=== PATIENT | female | born 1990 | race Hispanic/Latino ===

== ENCOUNTER 2018-12-25 05:44 | Emergency (ER) | payer SELFPAY ==
[2018-12-25 06:01] VITALS: BP 115/80
[2018-12-25] MEDS ORDERED: SOLU-Medrol IM ONE (08:30)
--- NOTE | 2018-12-25 08:49 | Emergency Department Report ---
ED Allergic Reaction HPI - General Chief complaint: Burn/Smoke Inhalation Stated complaint: POSSIBLE ALLERGIC REACTION SUNBURN Time Seen by Provider: 12/25/18 08:17 Source: patient Mode of arrival: Ambulatory Limitations: No Limitations - History of Present Illness Initial Comments: 28-year-old female presents to the ED with sunburn to face and bilateral forearms and hands. Patient sustained sunburn 3 days ago while working outside at a [employer] event. Patient states it initially started as a regular sunburn, but now states burning sensation is worse, and has developed some edema to bilateral eyes. Patient states she has tried aloe vera gel without improvement. States took Benadryl last night as well. Patient denies any other symptoms such as itching, rash. Denies any any new foods, or using any new products on her skin. MD Complaint: allergic reaction, facial swelling -: days(s) (3) Exposure: other (sun) Symptoms: facial swelling Severity: moderate Treatment Prior to Arrival: benadryl - Related Data Previous Rx's Medication Instructions Recorded Last Taken Type Lidocaine Viscous 2% 10 ml MM QID PRN #60 udc 01/10/17 Unknown Rx Mag Hydrox/Aluminum Hyd/Simeth 10 ml PO QID PRN #60 oral.susp 01/10/17 Unknown Rx [Maalox Advanced Suspension] diphenhydrAMINE [Benadryl ORAL LIQ] 10 ml PO QID PRN #60 udc 01/10/17 Unknown Rx Fluconazole [Diflucan TAB] 200 mg PO ONCE #1 tablet 08/24/18 Unknown Rx Sulfamethoxazole/Trimethoprim 1 each PO BID 7 Days #14 tablet 08/24/18 Unknown Rx [Bactrim DS TAB] Ibuprofen [Motrin] 600 mg PO Q8H PRN #20 tablet 08/29/18 Unknown Rx Nitrofurantoin [place]/M-Cryst 100 mg PO Q12HR #14 capsule 11/23/18 Unknown Rx [Macrobid CAP] Phenazopyridine [Pyridium] 100 mg PO TID #6 tab 11/23/18 Unknown Rx predniSONE [Prednisone] 50 mg PO DAILY #5 tablet 12/25/18 Unknown Rx Allergies Allergy/AdvReac Type Severity Reaction Status Date / Time acetaminophen [From Percocet] Allergy Anaphylaxis Verified 12/25/18 05:52 cefdinir [From Omnicef] Allergy Anaphylaxis Verified 11/29/18 08:16 oxycodone [From Percocet] Allergy Anaphylaxis Verified 11/29/18 08:16 oxycodone HCl [From Percocet] AdvReac Hives Verified 11/29/18 08:16 ED Review of Systems ROS: Stated complaint: POSSIBLE ALLERGIC REACTION SUNBURN Other details as noted in HPI Comment: All other systems reviewed and negative Constitutional: denies: chills, fever ENT: denies: throat pain Respiratory: denies: shortness of breath, stridor, wheezing Gastrointestinal: denies: nausea, vomiting ED Past Medical Hx - Past Medical History Previous Medical History?: No - Surgical History Past Surgical History?: Yes Hx Appendectomy: Yes Additional Surgical History: x1 - Social History Smoking Status: Current Every Day Smoker Substance Use Type: None - Medications Home Medications: Home Medications Medication Instructions Recorded Confirmed Last Taken Type Lidocaine Viscous 2% 10 ml MM QID PRN #60 udc 01/10/17 Unknown Rx Mag Hydrox/Aluminum Hyd/Simeth 10 ml PO QID PRN #60 oral.susp 01/10/17 Unknown Rx [Maalox Advanced Suspension] diphenhydrAMINE [Benadryl ORAL LIQ] 10 ml PO QID PRN #60 udc 01/10/17 Unknown Rx Fluconazole [Diflucan TAB] 200 mg PO ONCE #1 tablet 08/24/18 Unknown Rx Sulfamethoxazole/Trimethoprim 1 each PO BID 7 Days #14 tablet 08/24/18 Unknown Rx [Bactrim DS TAB] Ibuprofen [Motrin] 600 mg PO Q8H PRN #20 tablet 08/29/18 Unknown Rx Nitrofurantoin [place]/M-Cryst 100 mg PO Q12HR #14 capsule 11/23/18 Unknown Rx [Macrobid CAP] Phenazopyridine [Pyridium] 100 mg PO TID #6 tab 11/23/18 Unknown Rx predniSONE [Prednisone] 50 mg PO DAILY #5 tablet 12/25/18 Unknown Rx ED Physical Exam - General Limitations: No Limitations General appearance: alert, in no apparent distress - Head Head exam: Present: atraumatic, normocephalic - Eye Eye exam: Present: other (moderate edema to bilateral eyes) - ENT ENT exam: Present: mucous membranes moist - Neck Neck exam: Present: normal inspection - Respiratory Respiratory exam: Present: normal lung sounds bilaterally. Absent: respiratory distress, wheezes, stridor - Cardiovascular Cardiovascular Exam: Present: regular rate, normal rhythm - GI/Abdominal GI/Abdominal exam: Present: soft. Absent: distended - Extremities Exam Extremities exam: Present: normal inspection - Neurological Exam Neurological exam: Present: alert, oriented X3 - Psychiatric Psychiatric exam: Present: normal affect, normal mood - Skin Skin exam: Present: warm, dry, intact, erythema (to face and bilateral hands extending detention up bilateral forearms), other (no blistering present). Absent: rash ED Course Vital Signs 12/25/18 05:57 Temperature 97.9 F Pulse Rate 109 H Respiratory 18 Rate Blood Pressure 115/80 O2 Sat by Pulse 100 Oximetry ED Medical Decision Making - Differential Diagnosis sunburn Critical care attestation.: If time is entered above; I have spent that time in minutes in the direct care of this critically ill patient, excluding procedure time. ED Disposition Clinical Impression: Sunburn Disposition: DC-01 TO HOME OR SELFCARE Is pt being admited?: No Condition: Stable Instructions: Sunburn (ED) Prescriptions: predniSONE [Prednisone] 50 mg PO DAILY #5 tablet Referrals: REJI TONY MD [Primary Care Provider] - 3-5 Days Time of Disposition: 08:43
== END 2018-12-25 08:55 | disposition home or self-care (01) ==
LOC: ED 05:44
DX: L55.9 Sunburn, unspecified (principal); R22.0 Localized swelling, mass and lump, head; F17.200 Nicotine dependence, unspecified, uncomplicated; Z90.89 Acquired absence of other organs; Z88.6 Allergy status to analgesic agent; Z88.1 Allergy status to other antibiotic agents; Z88.5 Allergy status to narcotic agent
CPT/HCPCS: 96372; 99282; J2930

== ENCOUNTER 2019-01-12 02:14 | Emergency (ER) | payer OTHER ==
[2019-01-12 02:31] VITALS: BP 106/54
[2019-01-12] MEDS ORDERED: NORCO 5/325 ONE (03:56)
[2019-01-12] MEDS ORDERED: IBUPROFEN PO ONE ×2 (04:01→04:05)
[2019-01-12] MEDS ORDERED: NORCO 5/325 PO ONE (04:02)
--- NOTE | 2019-01-12 04:27 | Emergency Department Report ---
Upper Extremity - HPI Chief Complaint: Extremity Injury, Upper Stated Complaint: LEFT HAND INJURY Time Seen by Provider: 01/12/19 04:22 Upper Extremity: Left Ring Finger, Left Little Finger Occurred When: 1 Day Mechanism: Hyperflexion Severity: severe Symptoms: Yes Pain with Movement, Yes Limited Range of Movement, Yes Weakness, Yes Swelling, Yes Bruising/Ecchymosis, No Deformity, No Laceration or Abrasion Other History: 28-year-old female brought to the emergency room for left hand pain and swelling to the pinky finger on the left hand. Patient reports that it was bent all the way back and it has been hurting since yesterday morning. Patient reports that she took Tylenol but did not help much for the pain. Patient reports no past medical history, takes no medications on a daily basis. And has an allergy to codeine and oxycodone. ED Review of Systems ROS: Stated complaint: LEFT HAND INJURY Other details as noted in HPI Comment: All other systems reviewed and negative Musculoskeletal: joint swelling (left hand), arthralgia (left hand) ED Past Medical Hx - Past Medical History Previous Medical History?: No - Surgical History Hx Appendectomy: Yes Additional Surgical History: x1 - Social History Smoking Status: Current Every Day Smoker Substance Use Type: None - Medications Home Medications: Home Medications Medication Instructions Recorded Confirmed Last Taken Type Lidocaine Viscous 2% 10 ml MM QID PRN #60 udc 01/10/17 Unknown Rx Mag Hydrox/Aluminum Hyd/Simeth 10 ml PO QID PRN #60 oral.susp 01/10/17 Unknown Rx [Maalox Advanced Suspension] diphenhydrAMINE [Benadryl ORAL LIQ] 10 ml PO QID PRN #60 udc 01/10/17 Unknown Rx Fluconazole [Diflucan TAB] 200 mg PO ONCE #1 tablet 08/24/18 Unknown Rx Sulfamethoxazole/Trimethoprim 1 each PO BID 7 Days #14 tablet 08/24/18 Unknown Rx [Bactrim DS TAB] Nitrofurantoin [place]/M-Cryst 100 mg PO Q12HR #14 capsule 11/23/18 Unknown Rx [Macrobid CAP] Phenazopyridine [Pyridium] 100 mg PO TID #6 tab 11/23/18 Unknown Rx predniSONE [Prednisone] 50 mg PO DAILY #5 tablet 12/25/18 Unknown Rx Ibuprofen [Motrin 600 MG tab] 600 mg PO Q8H PRN #20 tablet 01/12/19 Unknown Rx Upper Extremity Exam - Exam General: Vital signs noted. No distress. Alert and acting appropriately. Elbow: No Elbow Tenderness, No Normal Range of Motion in Elbow, No Elbow Deformity Forearm: No Forearm Tenderness, No Forearm Deformity, No Pain with Pronation, No Pain with Supination Wrist: Yes Normal ROM in Wrist, No Wrist Tenderness, No Wrist Deformity, No Snuffbox Tenderness, No Pain with Axial Thumb Compression Hand: Yes Hand Tenderness, Yes Hand Deformity, Yes Digit Tenderness, No Normal ROM in Digit(s), No Digit(s) Deformity, No Tendon Dysfunction CMS Exam: Yes Normal Distal Pulses, Yes Normal Capillary Refill, Yes Normal Distal Sensation, No Broken Skin ED Course Vital Signs 01/12/19 01/12/19 01/12/19 02:20 02:28 04:05 Temperature 98.0 F 98 F Pulse Rate 78 78 Respiratory 18 18 18 Rate Blood Pressure 106/44 106/54 O2 Sat by Pulse 99 99 Oximetry Critical care attestation.: If time is entered above; I have spent that time in minutes in the direct care of this critically ill patient, excluding procedure time. ED Disposition Clinical Impression: Fracture, metacarpal shaft Qualifiers: Encounter type: initial encounter Metacarpal bone: fifth Fracture type: closed Fracture alignment: nondisplaced Laterality: left Qualified Code(s): S62.357A - Nondisplaced fracture of shaft of fifth metacarpal bone, left hand, initial encounter for closed fracture Disposition: DC-01 TO HOME OR SELFCARE Is pt being admited?: No Does the pt Need Aspirin: No Condition: Stable Instructions: Hand Fracture (ED) Additional Instructions: Please take pain medication as prescribed. It is very important for you to follow up with risk specialist I have listed one below for your convenience. Prescriptions: Ibuprofen [Motrin 600 MG tab] 600 mg PO Q8H PRN #20 tablet PRN Reason: Pain Referrals: KINZA BOWDEN MD [Staff Physician] - 3-5 Days Forms: Work/School Release Form(ED), Accompanied Note
--- NOTE | 2019-01-12 05:13 | XRay Report ---
PROCEDURE: XR HAND 3+V LT TECHNIQUE: 3 views left hand HISTORY: Swelling and pain left hand COMPARISONS: None FINDINGS: Oblique mildly angulated fracture extends through the diaphysis of the left fifth metacarpal. Joint s paces are unremarkable. Alignment is otherwise anatomic. No other fractures are seen. IMPRESSION: Oblique mildly angulated left fifth metacarpal fracture. This document is electronically signed by Tony Wagoner MD., January 12 2019 05:10:53 AM ET
== END 2019-01-12 05:10 | disposition home or self-care (01) ==
LOC: ED 02:14
DX: S62.327A Displaced fracture of shaft of fifth metacarpal bone, left hand, initial encounter for closed fracture (principal); F17.200 Nicotine dependence, unspecified, uncomplicated; Z90.89 Acquired absence of other organs; Z88.6 Allergy status to analgesic agent; Z88.1 Allergy status to other antibiotic agents; Z88.5 Allergy status to narcotic agent; X50.9XXA Other and unspecified overexertion or strenuous movements or postures, initial encounter; Y93.89 Activity, other specified; Y92.89 Other specified places as the place of occurrence of the external cause; Y99.8 Other external cause status

== ENCOUNTER 2019-01-31 08:59 | Emergency (ER) | payer OTHER ==
[2019-01-31 09:09] VITALS: BP 115/72
--- NOTE | 2019-01-31 10:25 | Emergency Department Report ---
[facility] Chief Complaint: Eye Problems Stated Complaint: POSS PINK EYE Duration: 2 Days Side: Bilateral Severity: moderate Symptoms: Yes Eye Itching, Yes Eye Redness, Yes Mucous Drainage, No Eye Pain, No Purulent Drainage, No Blurred Vision, No Preceding URI, No H/O Allergic Rhinitis, No Contact Lens Use, No Trauma, No Fever, No Headache Other History: This is a 28-year-old female presents with bilateral eye redness and itching for 2 days. Patient states it initially started on the right yesterday with redness. Patient states she woke up this morning and there was swelling, redness, and itching to right side and redness on left. She has not tried anything [id number]. No past medical history. Denies visual changes. She denies contact lens or glasses. She also complains of some drainage to right eye. ED Review of Systems ROS: Stated complaint: POSS PINK EYE Other details as noted in HPI Constitutional: denies: chills, fever Eyes: eye discharge (bilateral redness and itching). denies: vision change ENT: denies: ear pain, throat pain Respiratory: denies: cough, shortness of breath, wheezing Cardiovascular: denies: chest pain, palpitations Gastrointestinal: denies: abdominal pain, nausea, diarrhea Skin: denies: rash, lesions Neurological: denies: headache, weakness, paresthesias Psychiatric: denies: anxiety, depression ED Past Medical Hx - Past Medical History Previous Medical History?: No - Surgical History Hx Appendectomy: Yes Additional Surgical History: x1 - Social History Smoking Status: Current Every Day Smoker Substance Use Type: None - Medications Home Medications: Home Medications Medication Instructions Recorded Confirmed Last Taken Type Lidocaine Viscous 2% 10 ml MM QID PRN #60 [facility] 01/10/17 Unknown Rx Mag Hydrox/Aluminum Hyd/Simeth 10 ml PO QID PRN #60 oral.susp 01/10/17 Unknown Rx [Maalox Advanced Suspension] diphenhydrAMINE [Benadryl ORAL LIQ] 10 ml PO QID PRN #60 udc 01/10/17 Unknown Rx Fluconazole [Diflucan TAB] 200 mg PO ONCE #1 tablet 08/24/18 Unknown Rx Sulfamethoxazole/Trimethoprim 1 each PO BID 7 Days #14 tablet 08/24/18 Unknown Rx [Bactrim DS TAB] Nitrofurantoin [place]/M-Cryst 100 mg PO Q12HR #14 capsule 11/23/18 Unknown Rx [Macrobid CAP] Phenazopyridine [Pyridium] 100 mg PO TID #6 tab 11/23/18 Unknown Rx predniSONE [Prednisone] 50 mg PO DAILY #5 tablet 12/25/18 Unknown Rx Ibuprofen [Motrin 600 MG tab] 600 mg PO Q8H PRN #20 tablet 01/12/19 Unknown Rx Erythromycin [Erythromycin Ophth 10 applic OP QID 7 Days #1 tube 01/31/19 Unknown Rx Oint] [facility] Exam - Exam General: Vital signs noted. No distress. Alert and acting appropriately. Eye Exam: Right Chemosis, Right Mucous Discharge, Both Injection, Both EOMI, Neither Abnormal Pupil, Neither Eye Foreign Body, Neither Lid Foreign Body, Neither Purulent Discharge, Neither Fluorescein Uptake, Neither Fluorescein Uptake (slit lamp), Neither Cell/Flare (slit lamp), Neither Corneal Edema, Neither Photophobia HEENT: No Nasal Congestion, No Pharyngeal Erythema Remainder of HEENT: Normal Lungs: Yes Clear Lung Sounds, Yes Good Air Exchange, No Wheezes, No Stridor, No Cough, No Nasal Flaring, No Retractions, No Use of Accessory Muscles ED Course Vital Signs 01/31/19 09:00 Temperature 98.1 F Pulse Rate 84 Respiratory 16 Rate Blood Pressure 115/72 O2 Sat by Pulse 100 Oximetry ED Medical Decision Making - Medical Decision Making This is a 28-year-old female that presents with bilateral pink eyes with mucous discharge for 2 days. Patient is stable and was examined by me. Vitals normal. Physical assessment susceptible of conjunctivitis bilateral. Start erythromycin. Discussed plan with patient and she agreed with plan. Discharged home in stable condition. Follow up with PCP in 24-72 hours. Critical care attestation.: If time is entered above; I have spent that time in minutes in the direct care of this critically ill patient, excluding procedure time. ED Disposition Clinical Impression: Conjunctivitis Qualifiers: Conjunctivitis type: acute Acute conjunctivitis type: bacterial Laterality: bilateral Qualified Code(s): H10.33 - Unspecified acute conjunctivitis, bilateral Disposition: - TO HOME OR SELFCARE Is pt being admited?: No Does the pt Need Aspirin: No Condition: Stable Instructions: Conjunctivitis (ED) Additional Instructions: [place]e is very contagious so please wash hands frequently. Don't share any towels or bedding to prevent spread of infection. Follow up with primary care provider in 24-72 hours. Use cool compress to each eye to decrease swelling. Avoid rubbing or touching eyes, because rubbing eyes can cause worsening symptoms. Take medication as prescribed. Return to ER if swelling don't improve or difficulty breathing after 2 days of medication. Prescriptions: Erythromycin [Erythromycin Ophth Oint] 10 applic OP QID 7 Days #1 tube Referrals: [facility] [place] [facility] [place] - 3-5 Days [facility] [Outside] - 3-5 Days [facility] [Outside] - 3-5 Days Forms: Work/School Release Form(ED) Time of Disposition: 10:30
== END 2019-01-31 10:41 | disposition home or self-care (01) ==
LOC: ED 08:59
DX: H10.33 Unspecified acute conjunctivitis, bilateral (principal); F17.200 Nicotine dependence, unspecified, uncomplicated
CPT/HCPCS: 99282

== ENCOUNTER 2019-02-19 13:14 | Emergency (ER) | payer SELFPAY ==
--- NOTE | 2019-02-19 14:12 | Emergency Department Report ---
Chief Complaint: Urogenital-Female Stated Complaint: POS UTI/KIDNEY INFECTION Time Seen by Provider: 02/19/19 14:11 - HPI History of Present Illness: DYSURIA RX NONE PMH NONE LMP DUE 26 NOT CONCERN STI MSE screening note: Focused history and physical exam performed. Due to findings the following was ordered: ED Disposition for MSE Condition: Stable
[2019-02-19 15:36] LABS: Bilirubin,Urine NEG (Negative); Blood,Urine NEG (Negative); Color,Urine Yellow (Yellow); Protein,Urine <15 mg/dL mg/dL (Negative); Urobilinogen,Urine < 2.0 mg/dL (<2.0); WBC,Urine < 1.0 /HPF (0.0-6.0)
[2019-02-19 15:37] LABS: HCG Qualitative,Urine Negative (Negative); Mucus,Urine FEW /HPF
--- NOTE | 2019-02-19 17:26 | Emergency Department Report ---
ED Female HPI - General Chief complaint: Urogenital-Female Stated complaint: POS UTI/KIDNEY INFECTION Time Seen by Provider: 02/19/19 14:11 Source: patient Mode of arrival: Ambulatory Limitations: No Limitations - History of Present Illness Initial comments: This is a 28-year-old female presents with dysuria, pelvic pain, and low back pain for 3 days. Patient also complains of a headache for the past 2 days. Last menstrual period was 01/22/2019, A1 miscarriage. She also reports vaginal discharge. Patient states she has used Monistat one week ago with no improvement of symptoms. States she is sexually active with one partner. MD Complaint: vaginal discharge Onset/Timin -: days(s) Location: suprapubic Radiation: other (lower back) Severity: moderate Severity scale (0 -10): 4 Quality: cramping, burning Consistency: intermittent Improves with: none Worsens with: urination Are you Now?: No Last Menstrual Period: 01/22/19 EDC: 10/29/19 Associated Symptoms: vaginal discharge, abdominal pain, dysuria. denies: vaginal bleeding, nausea/vomiting, fever/chills, headaches, loss of appetite, hematuria, rash, seizure, shortness of breath, syncope, weakness - Related Data Sexually active: Yes : 2 Para: 1 A: 1 (miscarriage) Previous Rx's Medication Instructions Recorded Last Taken Type Lidocaine Viscous 2% 10 ml MM QID PRN #60 udc 01/10/17 Unknown Rx Mag Hydrox/Aluminum Hyd/Simeth 10 ml PO QID PRN #60 oral.susp 01/10/17 Unknown Rx [Maalox Advanced Suspension] diphenhydrAMINE [Benadryl ORAL LIQ] 10 ml PO QID PRN #60 udc 01/10/17 Unknown Rx Fluconazole [Diflucan TAB] 200 mg PO ONCE #1 tablet 08/24/18 Unknown Rx Sulfamethoxazole/Trimethoprim 1 each PO BID 7 Days #14 tablet 08/24/18 Unknown Rx [Bactrim DS TAB] Nitrofurantoin [place]/M-Cryst 100 mg PO Q12HR #14 capsule 11/23/18 Unknown Rx [Macrobid CAP] Phenazopyridine [Pyridium] 100 mg PO TID #6 tab 11/23/18 Unknown Rx predniSONE [Prednisone] 50 mg PO DAILY #5 tablet 12/25/18 Unknown Rx Ibuprofen [Motrin 600 MG tab] 600 mg PO Q8H PRN #20 tablet 01/12/19 Unknown Rx Erythromycin [Erythromycin Ophth 10 applic OP QID 7 Days #1 tube 01/31/19 Unknown Rx Oint] metroNIDAZOLE [Metronidazole] 500 mg PO BID #14 tablet 02/19/19 Unknown Rx Allergies Allergy/AdvReac Type Severity Reaction Status Date / Time cefdinir [From Omnicef] Allergy Anaphylaxis Verified 02/19/19 14:14 oxycodone [From Percocet] Allergy Anaphylaxis Verified 02/19/19 14:14 oxycodone HCl [From Percocet] AdvReac Hives Verified 02/19/19 14:14 ED Review of Systems ROS: Stated complaint: POS UTI/KIDNEY INFECTION Other details as noted in HPI Constitutional: denies: chills, fever Respiratory: denies: cough, shortness of breath, wheezing Cardiovascular: denies: chest pain, palpitations Gastrointestinal: abdominal pain. denies: nausea, diarrhea Genitourinary: discharge. denies: urgency, dysuria Musculoskeletal: back pain. denies: joint swelling, arthralgia Skin: denies: rash, lesions Neurological: denies: headache, weakness, paresthesias Psychiatric: denies: anxiety, depression ED Past Medical Hx - Past Medical History Previous Medical History?: No - Surgical History Past Surgical History?: Yes Hx Appendectomy: Yes Additional Surgical History: x1 - Social History Smoking Status: Current Every Day Smoker Substance Use Type: None - Medications Home Medications: Home Medications Medication Instructions Recorded Confirmed Last Taken Type Lidocaine Viscous 2% 10 ml MM QID PRN #60 udc 01/10/17 Unknown Rx Mag Hydrox/Aluminum Hyd/Simeth 10 ml PO QID PRN #60 oral.susp 01/10/17 Unknown Rx [Maalox Advanced Suspension] diphenhydrAMINE [Benadryl ORAL LIQ] 10 ml PO QID PRN #60 udc 01/10/17 Unknown Rx Fluconazole [Diflucan TAB] 200 mg PO ONCE #1 tablet 08/24/18 Unknown Rx Sulfamethoxazole/Trimethoprim 1 each PO BID 7 Days #14 tablet 08/24/18 Unknown Rx [Bactrim DS TAB] Nitrofurantoin [place]/M-Cryst 100 mg PO Q12HR #14 capsule 11/23/18 Unknown Rx [Macrobid CAP] Phenazopyridine [Pyridium] 100 mg PO TID #6 tab 11/23/18 Unknown Rx predniSONE [Prednisone] 50 mg PO DAILY #5 tablet 12/25/18 Unknown Rx Ibuprofen [Motrin 600 MG tab] 600 mg PO Q8H PRN #20 tablet 01/12/19 Unknown Rx Erythromycin [Erythromycin Ophth 10 applic OP QID 7 Days #1 tube 01/31/19 Unknown Rx Oint] metroNIDAZOLE [Metronidazole] 500 mg PO BID #14 tablet 02/19/19 Unknown Rx ED Physical Exam - General Limitations: No Limitations General appearance: alert, in no apparent distress - Respiratory Respiratory exam: Present: normal lung sounds bilaterally. Absent: respiratory distress - Cardiovascular Cardiovascular Exam: Present: regular rate, normal rhythm. Absent: systolic murmur, diastolic murmur, rubs, gallop - GI/Abdominal GI/Abdominal exam: Present: soft, normal bowel sounds. Absent: distended, tenderness, guarding, rebound, rigid, organomegaly, mass, bruit, pulsatile mass - Back Exam Back exam: Absent: CVA tenderness (R), CVA tenderness (L) - Neurological Exam Neurological exam: Present: alert, oriented X3 - Psychiatric Psychiatric exam: Present: normal affect, normal mood - Skin Skin exam: Present: warm, dry, intact, normal color. Absent: rash ED Course Vital Signs 02/19/19 02/19/19 14:12 18:28 Temperature 98.5 F 98.5 F Pulse Rate 77 63 Respiratory 16 14 Rate Blood Pressure 100/70 107/73 O2 Sat by Pulse 98 100 Oximetry ED Medical Decision Making - Medical Decision Making This is a 28-year-old female who presents with vaginal discharge for one week. Patient was examined by me. Vitals are stable and in no acute distress. Pain is present. Pelvic exam. Wet prep positive for clue cells, negative Trichomonas and yeast. Start metronidazole 500 mg by mouth twice a day 7 days, 0 refills. Discharged home in stable condition. Discussed prevention options. F/U with PCP or Health Department. Critical care attestation.: If time is entered above; I have spent that time in minutes in the direct care of this critically ill patient, excluding procedure time. ED Disposition Clinical Impression: Vaginal discharge Disposition: DC- TO HOME OR SELFCARE Is pt being admited?: No Does the pt Need Aspirin: No Condition: Stable Instructions: Bacterial Vaginosis (ED) Additional Instructions: Complete full course of antibiotics as prescribed. Avoid drinking alcohol while taking antibiotics appropriate 24 hours of completion. Follow-up with your primary care provider or cashier assistant. Prescriptions: metroNIDAZOLE [Metronidazole] 500 mg PO BID #14 tablet Referrals: REJI TONY MD [Primary Care Provider] - 3-5 Days [facility] [Provider Group] - 3-5 Days [facility] [Provider Group] - 3-5 Days Forms: Work/School Release Form(ED) Time of Disposition: 19:08
[2019-02-19 18:46] VITALS: BP 107/73
== END 2019-02-19 19:25 | disposition home or self-care (01) ==
LOC: ED 13:14
DX: N89.8 Other specified noninflammatory disorders of vagina (principal); F17.200 Nicotine dependence, unspecified, uncomplicated; Z88.5 Allergy status to narcotic agent; Z90.49 Acquired absence of other specified parts of digestive tract
CPT/HCPCS: 81001; 81025; 87210; 99284

== ENCOUNTER 2019-03-26 00:48 | Emergency (ER) | payer OTHER ==
[2019-03-26 01:42] LABS: HCG Qualitative,Urine Negative (Negative)
[2019-03-26 01:45] LABS: Bacteria,Urine 2+ /HPF (Negative); Bilirubin,Urine NEG (Negative); Blood,Urine NEG (Negative); Color,Urine Amber (Yellow); Mucus,Urine 3+ /HPF
--- NOTE | 2019-03-26 02:14 | Emergency Department Report ---
ED Female HPI - General Chief complaint: Urogenital-Female Stated complaint: POSS UTI Time Seen by Provider: 03/26/19 01:47 Source: patient Mode of arrival: Ambulatory Limitations: No Limitations - History of Present Illness Initial comments: Pt is a 28 yo female who presents to the ED with c/o dysuria that began yesterday. she has associated suprapubic pressure. she denies any fever, N/V/D, frequency, or vaginal discharge. pt states her LNMP was February 25. - Related Data Previous Rx's Medication Instructions Recorded Last Taken Type Lidocaine Viscous 2% 10 ml MM QID PRN #60 udc 01/10/17 Unknown Rx Mag Hydrox/Aluminum Hyd/Simeth 10 ml PO QID PRN #60 oral.susp 01/10/17 Unknown Rx [Maalox Advanced Suspension] diphenhydrAMINE [Benadryl ORAL LIQ] 10 ml PO QID PRN #60 udc 01/10/17 Unknown Rx Fluconazole [Diflucan TAB] 200 mg PO ONCE #1 tablet 08/24/18 Unknown Rx Sulfamethoxazole/Trimethoprim 1 each PO BID 7 Days #14 tablet 08/24/18 Unknown Rx [Bactrim DS TAB] Nitrofurantoin [place]/M-Cryst 100 mg PO Q12HR #14 capsule 11/23/18 Unknown Rx [Macrobid CAP] Phenazopyridine [Pyridium] 100 mg PO TID #6 tab 11/23/18 Unknown Rx predniSONE [Prednisone] 50 mg PO DAILY #5 tablet 12/25/18 Unknown Rx Ibuprofen [Motrin 600 MG tab] 600 mg PO Q8H PRN #20 tablet 01/12/19 Unknown Rx Erythromycin [Erythromycin Ophth 10 applic OP QID 7 Days #1 tube 01/31/19 Unknown Rx Oint] metroNIDAZOLE [Metronidazole] 500 mg PO BID #14 tablet 02/19/19 Unknown Rx Ciprofloxacin HCl [Ciprofloxacin 250 mg PO BID 3 Days #6 tablet 03/26/19 Unknown Rx TAB] Fluconazole [Diflucan TAB] 150 mg PO ONCE #1 tablet 03/28/19 Unknown Rx Allergies Allergy/AdvReac Type Severity Reaction Status Date / Time cefdinir [From Omnicef] Allergy Anaphylaxis Verified 02/19/19 14:14 oxycodone [From Percocet] Allergy Anaphylaxis Verified 02/19/19 14:14 oxycodone HCl [From Percocet] AdvReac Hives Verified 02/19/19 14:14 ED Review of Systems ROS: Stated complaint: POSS UTI Other details as noted in HPI Comment: All other systems reviewed and negative ED Past Medical Hx - Past Medical History Previous Medical History?: No - Surgical History Past Surgical History?: Yes Hx Appendectomy: Yes Additional Surgical History: x1 - Social History Smoking Status: Current Every Day Smoker Substance Use Type: None - Medications Home Medications: Home Medications Medication Instructions Recorded Confirmed Last Taken Type Lidocaine Viscous 2% 10 ml MM QID PRN #60 udc 01/10/17 Unknown Rx Mag Hydrox/Aluminum Hyd/Simeth 10 ml PO QID PRN #60 oral.susp 01/10/17 Unknown Rx [Maalox Advanced Suspension] diphenhydrAMINE [Benadryl ORAL LIQ] 10 ml PO QID PRN #60 udc 01/10/17 Unknown Rx Fluconazole [Diflucan TAB] 200 mg PO ONCE #1 tablet 08/24/18 Unknown Rx Sulfamethoxazole/Trimethoprim 1 each PO BID 7 Days #14 tablet 08/24/18 Unknown Rx [Bactrim DS TAB] Nitrofurantoin [place]/M-Cryst 100 mg PO Q12HR #14 capsule 11/23/18 Unknown Rx [Macrobid CAP] Phenazopyridine [Pyridium] 100 mg PO TID #6 tab 11/23/18 Unknown Rx predniSONE [Prednisone] 50 mg PO DAILY #5 tablet 12/25/18 Unknown Rx Ibuprofen [Motrin 600 MG tab] 600 mg PO Q8H PRN #20 tablet 01/12/19 Unknown Rx Erythromycin [Erythromycin Ophth 10 applic OP QID 7 Days #1 tube 01/31/19 Unknown Rx Oint] metroNIDAZOLE [Metronidazole] 500 mg PO BID #14 tablet 02/19/19 Unknown Rx Ciprofloxacin HCl [Ciprofloxacin 250 mg PO BID 3 Days #6 tablet 03/26/19 Unknown Rx TAB] Fluconazole [Diflucan TAB] 150 mg PO ONCE #1 tablet 03/28/19 Unknown Rx ED Physical Exam - General Limitations: No Limitations General appearance: alert, in no apparent distress - Head Head exam: Present: atraumatic, normocephalic - ENT ENT exam: Present: mucous membranes moist - Respiratory Respiratory exam: Present: normal lung sounds bilaterally. Absent: respiratory distress, wheezes, rales, rhonchi, stridor, chest wall tenderness, accessory muscle use, decreased breath sounds, prolonged expiratory - Cardiovascular Cardiovascular Exam: Present: regular rate, normal rhythm, normal heart sounds. Absent: systolic murmur, diastolic murmur, rubs, gallop - GI/Abdominal GI/Abdominal exam: Present: soft, normal bowel sounds. Absent: distended, tenderness, guarding, rebound, rigid - Back Exam Back exam: Absent: CVA tenderness (R), CVA tenderness (L) - Neurological Exam Neurological exam: Present: alert, oriented X3 - Psychiatric Psychiatric exam: Present: normal affect, normal mood - Skin Skin exam: Present: warm, dry, intact ED Course Vital Signs 03/26/19 03/26/19 00:49 02:26 Temperature 98.4 F Pulse Rate 105 H 77 Respiratory 18 16 Rate Blood Pressure 116/80 Blood Pressure 113/78 [Left] O2 Sat by Pulse 98 99 Oximetry ED Medical Decision Making - Lab Data Lab Results 03/26/19 Range/Units 00:59 Urine Color [place] (Yellow) Urine Turbidity Cloudy (Clear) Urine pH 5.0 (5.0-7.0) Ur Specific [place] 1.031 H (1.003-1.030) Urine Protein 30 mg/dl (Negative) mg/dL Urine Glucose (UA) Neg (Negative) mg/dL Urine Ketones Tr (Negative) mg/dL Urine Blood Neg (Negative) Urine Nitrite Neg (Negative) Ur Reducing Substances Not Reportable Urine Bilirubin Neg (Negative) Urine Ictotest Not Reportable Urine Urobilinogen 4.0 (<2.0) mg/dL Ur Leukocyte Esterase Mod (Negative) Urine WBC (Auto) 28.0 H (0.0-6.0) /HPF Urine RBC (Auto) 10.0 (0.0-6.0) /HPF U Epithel Cells (Auto) 11.0 (0-13.0) /HPF Urine Bacteria (Auto) 2+ (Negative) /HPF Urine Mucus 3+ /HPF Urine HCG, Qual Negative (Negative) Vital Signs 03/26/19 03/26/19 00:49 02:26 Temperature 98.4 F Pulse Rate 105 H 77 Respiratory 18 16 Rate Blood Pressure 116/80 Blood Pressure 113/78 [Left] O2 Sat by Pulse 98 99 Oximetry - Medical Decision Making Pt is a 28 yo female who presents to the ED with c/o dysuria that began yesterday. she has associated suprapubic pressure. she denies any fever, N/V/D, frequency, or vaginal discharge. pt states her LNMP was February 25. UA shows evidence of UTI. on repeat vitals, vitals are normal. no abd tenderness. pt given prescription for cipro. advised to take all medication as prescribed. drink plenty of water. follow up with athletic shoe designer and PCP in the next 2-3 days for evaluation. return to the ED for any new or worsening symptoms. Critical care attestation.: If time is entered above; I have spent that time in minutes in the direct care of this critically ill patient, excluding procedure time. ED Disposition Clinical Impression: UTI (urinary tract infection) Qualifiers: Urinary tract infection type: acute cystitis Hematuria presence: without hematuria Qualified Code(s): N30.00 - Acute cystitis without hematuria Disposition: TO HOME OR SELFCARE Is pt being admited?: No Does the pt Need Aspirin: No Condition: Stable Instructions: Urinary Tract Infection in Women (ED) Additional Instructions: Please follow up with a primary care doctor in the next 2-3 days. Please follow up with an PRODUCTION CONTROL ANALYST in the next 2-3 days due to frequent UTIs. Return to the emergency room for any new or worsening symptoms. drink plenty of water. Prescriptions: Ciprofloxacin HCl [Ciprofloxacin TAB] 250 mg PO BID 3 Days #6 tablet Referrals: [facility] [Provider Group] - 2-3 Days [facility] [Provider Group] - 2-3 Days Time of Disposition: 02:16 Print Language: SPANISH
[2019-03-26 02:27] VITALS: BP 113/78
== END 2019-03-26 02:26 | disposition home or self-care (01) ==
LOC: ED 00:48
DX: N39.0 Urinary tract infection, site not specified (principal); F17.200 Nicotine dependence, unspecified, uncomplicated; Z90.89 Acquired absence of other organs; Z88.1 Allergy status to other antibiotic agents; Z88.5 Allergy status to narcotic agent
CPT/HCPCS: 81001; 81025

== ENCOUNTER 2019-03-28 15:10 | Emergency (ER) | payer OTHER ==
--- NOTE | 2019-03-28 15:46 | Emergency Department Report ---
Blank Doc - Documentation Documentation: This is a 28-year-old female that presents with dysuria and flank pain. Stated has been taking Cipro with no relief. Has been diagnosed with UTI few days ago. This initial assessment/diagnostic orders/clinical plan/treatment(s) is/are subject to change based on patient's health status, clinical progression and re- assessment by fellow clinical providers in the ED. Further treatment and workup at subsequent clinical providers discretion. Patient/guardians urged not to el ope from the ED as their condition may be serious if not clinically assessed and managed. Initial orders include: 1- Patient sent to [facility] for further evaluation and treatment 2- UA
[2019-03-28 16:29] LABS: HCG Qualitative,Urine Negative (Negative)
[2019-03-28 16:31] LABS: Bacteria,Urine 1+ /HPF (Negative); Bilirubin,Urine NEG (Negative); Blood,Urine NEG (Negative); Color,Urine Yellow (Yellow); Mucus,Urine 1+ /HPF; Protein,Urine <15 mg/dL mg/dL (Negative)
--- NOTE | 2019-03-28 16:45 | Emergency Department Report ---
HPI - General Chief Complaint: Urogenital-Female Time Seen by Provider: 03/28/19 15:45 - HPI HPI: 28-year-old female presents to the emergency department saying that the treatment she got for a urinary tract infection did not work for her. The ho kaur was seen here 2 days ago on 03/26/19 and presented at that time with complaints of some dysuria. She was found to have a mild to moderate urinary tract infection and was placed on a three-day course of Cipro, which the patient says that she took compliantly. She denies any abdominal pain, back pain, vomiting, fever. Upon more investigation, the patient's main complaint at this time is some burning and itching to the outside of her vagina that worsens when she wipes after urination. She just recently moved here from [place] and therefore does not have any local primary care physician or LATRINE CLEANER. She denies any vaginal bleeding or discharge, fever. ED Past Medical Hx - Past Medical History Previous Medical History?: No - Surgical History Past Surgical History?: Yes Hx Appendectomy: Yes Additional Surgical History: x1 - Social History Smoking Status: Current Every Day Smoker Substance Use Type: None - Medications Home Medications: Home Medications Medication Instructions Recorded Confirmed Last Taken Type Lidocaine Viscous 2% 10 ml MM QID PRN #60 udc 01/10/17 Unknown Rx Mag Hydrox/Aluminum Hyd/Simeth 10 ml PO QID PRN #60 oral.susp 01/10/17 Unknown Rx [Maalox Advanced Suspension] diphenhydrAMINE [Benadryl ORAL LIQ] 10 ml PO QID PRN #60 udc 01/10/17 Unknown Rx Fluconazole [Diflucan TAB] 200 mg PO ONCE #1 tablet 08/24/18 Unknown Rx Sulfamethoxazole/Trimethoprim 1 each PO BID 7 Days #14 tablet 08/24/18 Unknown Rx [Bactrim DS TAB] Nitrofurantoin [place]/M-Cryst 100 mg PO Q12HR #14 capsule 11/23/18 Unknown Rx [Macrobid CAP] Phenazopyridine [Pyridium] 100 mg PO TID #6 tab 11/23/18 Unknown Rx predniSONE [Prednisone] 50 mg PO DAILY #5 tablet 12/25/18 Unknown Rx Ibuprofen [Motrin 600 MG tab] 600 mg PO Q8H PRN #20 tablet 01/12/19 Unknown Rx Erythromycin [Erythromycin Ophth 10 applic OP QID 7 Days #1 tube 01/31/19 Unknown Rx Oint] metroNIDAZOLE [Metronidazole] 500 mg PO BID #14 tablet 02/19/19 Unknown Rx Ciprofloxacin HCl [Ciprofloxacin 250 mg PO BID 3 Days #6 tablet 03/26/19 Unknown Rx TAB] Fluconazole [Diflucan TAB] 150 mg PO ONCE #1 tablet 03/28/19 Unknown Rx ED Review of Systems ROS: Stated complaint: UTI Other details as noted in HPI Comment: All other systems reviewed and negative Constitutional: denies: chills, fever Gastrointestinal: denies: abdominal pain, vomiting Genitourinary: dysuria. denies: hematuria, discharge Musculoskeletal: denies: back pain, arthralgia Neurological: denies: headache, weakness Physical Exam - Physical Exam Vital Signs: Vital Signs 03/28/19 15:45 Temperature 98.2 F Pulse Rate 90 Respiratory 16 Rate Blood Pressure 103/69 Blood Pressure 103/69 [Right] O2 Sat by Pulse 98 Oximetry Physical Exam: GENERAL: The patient is well-developed well-nourished. HENT: Normocephalic. Atraumatic. Patient has moist mucous membranes. EYES: Extraocular motions are intact. NECK: Supple. Trachea is midline. CHEST/LUNGS: Clear to auscultation. There is no respiratory distress noted. HEART/CARDIOVASCULAR: Regular. There is no tachycardia. There is no murmur. ABDOMEN: Abdomen is soft, nontender. Patient has normal bowel sounds. There is no abdominal distention. SKIN: Skin is warm and dry. NEURO: The patient is awake, alert, and oriented. The patient is cooperative. The patient has normal speech. MUSCULOSKELETAL: There is no tenderness or deformity. There is no evidence of acute injury. PELVIC: Deferred ED Course Vital Signs 03/28/19 15:45 Temperature 98.2 F Pulse Rate 90 Respiratory 16 Rate Blood Pressure 103/69 Blood Pressure 103/69 [Right] O2 Sat by Pulse 98 Oximetry ED Medical Decision Making - Medical Decision Making This patient originally came in saying that she is still having the same symptoms that she had 2 days ago with her urinary tract infection. We rechecked the urine and it appears that her UTI has cleared. Upon further investigation, her main complaint is that she has some burning and itching when wiping after urination. She still denies any vaginal discharge. This sounds consistent with some mild vulvovaginitis candidiasis. She will finish her last Cipro pill. I am prescribing her a single 150 mg Diflucan pill. Vital signs stable throughout her ED course including being afebrile. She will be discharged home with this medication as well as some referrals for primary care and LATRINE CLEANER. She will return to the ER with any worsening of her symptoms or any acute distress. - Differential Diagnosis UTI, , vulvovaginitis candidiasis Critical Care Time: No Critical care attestation.: If time is entered above; I have spent that time in minutes in the direct care of this critically ill patient, excluding procedure time. ED Disposition Clinical Impression: Vulvovaginal candidiasis Disposition: - TO HOME OR SELFCARE Is pt being admited?: No Condition: Stable Instructions: Vulvovaginal Candidiasis (ED) Additional Instructions: Please follow up with a primary care physician and LATRINE CLEANER. I will give you some referrals for both. Return to the emergency Department with any worsening of her symptoms or any acute distress. Prescriptions: Fluconazole [Diflucan TAB] 150 mg PO ONCE #1 tablet Referrals: [facility] [Outside] - 2-3 Days [facility] [Provider Group] - 2-3 Days [facility] [Provider Group] - 2-3 Days Time of Disposition: 16:46
[2019-03-28 17:04] VITALS: BP 100/64
== END 2019-03-28 17:04 | disposition home or self-care (01) ==
LOC: ED 15:10
DX: B37.3 Candidiasis of vulva and vagina (principal); F17.200 Nicotine dependence, unspecified, uncomplicated; Z88.6 Allergy status to analgesic agent; Z88.8 Allergy status to other drugs, medicaments and biological substances
CPT/HCPCS: 81001; 81025; 87086; 99283

== ENCOUNTER 2019-08-13 20:37 | Emergency (ER) | payer OTHER ==
--- NOTE | 2019-08-13 21:54 | Emergency Department Report ---
Chief Complaint: Abdominal Pain Stated Complaint: UTI LOW BACK AND STOMACH PAIN - HPI History of Present Illness: 28yo WF compains of lower abdominal, back pain and discomfort during urination x 2 days. - Exam Vital Signs: Vital Signs 08/13/19 21:34 Temperature 98.2 F Pulse Rate 76 Respiratory 18 Rate Blood Pressure 114/76 O2 Sat by Pulse 98 Oximetry MSE screening note: Focused history and physical exam performed. Due to findings the following was ordered: ED Disposition for MSE Condition: Stable Instructions: Abdominal Pain (ED)
[2019-08-13 22:29] LABS: Alanine Aminotransferase 7 units/L (7-56); Albumin 4.3 g/dL (3.9-5); BUN/Creatinine Ratio 9; Blood Urea Nitrogen 9 mg/dL (7-17); Calcium 9.5 mg/dL (8.4-10.2); Hemolysis Index 40
[2019-08-13 22:35] LABS: Hematocrit 43.9 % (30.3-42.9); Hemoglobin 14.9 gm/dl (10.1-14.3); Mean Corpuscular HGB Conc 34 % (30-34); Mean Corpuscular Volume 94 fl (79-97); Platelet Count 185 K/mm3 (140-440); Red Blood Count 4.67 M/mm3 (3.65-5.03); Red Cell Distribution Width 13.2 % (13.2-15.2)
[2019-08-13 22:43] LABS: Basophils # (Auto) 0.1 K/mm3 (0.0-0.1); Basophils % (Auto) 0.6 % (0.0-1.8); Eosinophils # (Auto) 0.1 K/mm3 (0.0-0.4); Eosinophils % (Auto) 0.8 % (0.0-4.3); Lymphocytes # (Auto) 3.6 K/mm3 (1.2-5.4); Lymphocytes % (Auto) 35.2 % (13.4-35.0); Monocytes # (Auto) 0.7 K/mm3 (0.0-0.8); Monocytes % (Auto) 6.8 % (0.0-7.3)
[2019-08-13 23:01] LABS: Bilirubin,Urine NEG (Negative); Color,Urine Yellow (Yellow)
[2019-08-13 23:02] LABS: Amorphous Crystals,Urine 1+; Blood,Urine NEG (Negative); Mucus,Urine FEW /HPF; Protein,Urine <15 mg/dL mg/dL (Negative); Urobilinogen,Urine < 2.0 mg/dL (<2.0)
[2019-08-13 23:04] LABS: HCG Qualitative,Urine Negative (Negative)
[2019-08-14] MEDS ORDERED: TORADOL IV ONE (04:35)
[2019-08-14] MEDS ORDERED: NACL 0.9% 1000 ML 1,000 ML IV ONE (04:35)
--- NOTE | 2019-08-14 04:37 | Event Note ---
Date: 08/14/19 medical screening note: chaperoned by FERNANDEZ Jones 28 y/o female with rlq and suprapubic pain. history of appendectomy no rlq tenderness. afebrile and benign exam labs wnl at this time check pelvic ultrasound give toradol and fluids and reassess Vital Signs 08/13/19 08/14/19 08/14/19 21:34 02:38 03:07 Temperature 98.2 F 97.9 F 98.1 F Pulse Rate 76 53 L 55 L Respiratory 18 18 16 Rate Blood Pressure 114/76 Blood Pressure 113/71 107/74 [Right] O2 Sat by Pulse 98 98 100 Oximetry Lab Results 08/13/19 08/13/19 08/13/19 Range/Units 21:46 21:46 Unknown WBC 10.6 (4.5-11.0) K/mm3 RBC 4.67 (3.65-5.03) M/mm3 Hgb 14.9 H (10.1-14.3) gm/dl Hct 43.9 H (30.3-42.9) % MCV 94 (79-97) fl MCH 32 (28-32) pg MCHC 34 (30-34) % RDW 13.2 (13.2-15.2) % Plt Count 185 (140-440) K/mm3 Lymph % (Auto) 35.2 H (13.4-35.0) % [place] % (Auto) 6.8 (0.0-7.3) % Eos % (Auto) 0.8 (0.0-4.3) % Baso % (Auto) 0.6 (0.0-1.8) % Lymph # 3.6 (1.2-5.4) K/mm3 [place] # 0.7 (0.0-0.8) K/mm3 Eos # 0.1 (0.0-0.4) K/mm3 Baso # 0.1 (0.0-0.1) K/mm3 Seg Neutrophils % 56.6 (40.0-70.0) % Seg Neutrophils # 5.8 (1.8-7.7) K/mm3 Sodium 140 (137-145) mmol/L Potassium 4.8 (3.6-5.0) mmol/L Chloride 103.5 (98-107) mmol/L Carbon Dioxide 24 (22-30) mmol/L Anion Gap 17 mmol/L BUN 9 (7-17) mg/dL Creatinine 1.0 (0.7-1.2) mg/dL Estimated GFR > 60 ml/min BUN/Creatinine Ratio 9 % Glucose 95 (65-100) mg/dL Calcium 9.5 (8.4-10.2) mg/dL Total Bilirubin 0.20 (0.1-1.2) mg/dL AST 13 (5-40) units/L ALT 7 (7-56) units/L Alkaline Phosphatase 83 (35-129) units/L Total Protein 7.2 (6.3-8.2) g/dL Albumin 4.3 (3.9-5) g/dL Albumin/Globulin Ratio 1.5 % Urine Color Yellow (Yellow) Urine Turbidity Turbid (Clear) Urine pH 7.0 (5.0-7.0) Ur Specific [place] 1.018 (1.003-1.030) Urine Protein <15 mg/dl (Negative) mg/dL Urine Glucose (UA) Neg (Negative) mg/dL Urine Ketones Neg (Negative) mg/dL Urine Blood Neg (Negative) Urine Nitrite Neg (Negative) Urine Bilirubin Neg (Negative) Urine Urobilinogen < 2.0 (<2.0) mg/dL Ur Leukocyte Esterase Neg (Negative) Urine WBC (Auto) 1.0 (0.0-6.0) /HPF Urine RBC (Auto) 2.0 (0.0-6.0) /HPF U Epithel Cells (Auto) 2.0 (0-13.0) /HPF Amorphous Crystals 1+ Urine Mucus Few /HPF Urine HCG, Qual Negative (Negative)
--- NOTE | 2019-08-14 06:16 | Emergency Department Report ---
ED Abdominal Pain HPI - General Chief Complaint: Abdominal Pain Stated Complaint: UTI LOW BACK AND STOMACH PAIN Time Seen by Provider: 08/14/19 06:10 Source: patient Mode of arrival: Ambulatory Limitations: No Limitations - History of Present Illness Initial Comments: Patient is 28 years old female with no significant past medical history. Patient presented to the ER complaining of lower abdominal pain mainly to the suprapubic area for the last 3 days. Patient denied any fever or chills. No vaginal bleeding or vaginal discharge. Patient also denied any nausea vomiting or diarrhea. MD Complaint: abdominal pain Location: suprapubic Radiation: none Severity scale (0 -10): 7 Quality: cramping, fullness Consistency: constant Associated Symptoms: denies other symptoms - Related Data Previous Rx's Medication Instructions Recorded Last Taken Type Lidocaine Viscous 2% 10 ml MM QID PRN #60 udc 01/10/17 Unknown Rx Mag Hydrox/Aluminum Hyd/Simeth 10 ml PO QID PRN #60 oral.susp 01/10/17 Unknown Rx [Maalox Advanced Suspension] diphenhydrAMINE [Benadryl ORAL LIQ] 10 ml PO QID PRN #60 udc 01/10/17 Unknown Rx Fluconazole [Diflucan TAB] 200 mg PO ONCE #1 tablet 08/24/18 Unknown Rx Sulfamethoxazole/Trimethoprim 1 each PO BID 7 Days #14 tablet 08/24/18 Unknown Rx [Bactrim DS TAB] Nitrofurantoin [place]/M-Cryst 100 mg PO Q12HR #14 capsule 11/23/18 Unknown Rx [Macrobid CAP] Phenazopyridine [Pyridium] 100 mg PO TID #6 tab 11/23/18 Unknown Rx predniSONE [Prednisone] 50 mg PO DAILY #5 tablet 12/25/18 Unknown Rx Ibuprofen [Motrin 600 MG tab] 600 mg PO Q8H PRN #20 tablet 01/12/19 Unknown Rx Erythromycin [Erythromycin Ophth 10 applic OP QID 7 Days #1 tube 01/31/19 Unknown Rx Oint] metroNIDAZOLE [Metronidazole] 500 mg PO BID #14 tablet 02/19/19 Unknown Rx Ciprofloxacin HCl [Ciprofloxacin 250 mg PO BID 3 Days #6 tablet 03/26/19 Unknown Rx TAB] Fluconazole [Diflucan TAB] 150 mg PO ONCE #1 tablet 03/28/19 Unknown Rx Allergies Allergy/AdvReac Type Severity Reaction Status Date / Time cefdinir [From Omnicef] Allergy Anaphylaxis Verified 02/19/19 14:14 oxycodone [From Percocet] Allergy Anaphylaxis Verified 02/19/19 14:14 oxycodone HCl [From Percocet] AdvReac Hives Verified 02/19/19 14:14 ED Review of Systems ROS: Stated complaint: UTI LOW BACK AND STOMACH PAIN Other details as noted in HPI Comment: All other systems reviewed and negative Constitutional: denies: chills, fever Respiratory: denies: cough, shortness of breath, SOB with exertion Cardiovascular: denies: chest pain Gastrointestinal: abdominal pain. denies: nausea, vomiting, diarrhea, constipation, hematemesis, melena, hematochezia Genitourinary: dysuria, frequency. denies: hematuria, discharge, abnormal menses, dyspareunia Musculoskeletal: denies: back pain ED Past Medical Hx - Past Medical History Previous Medical History?: No - Surgical History Hx Appendectomy: Yes Additional Surgical History: x1 - Social History Smoking Status: Current Every Day Smoker Substance Use Type: None - Medications Home Medications: Home Medications Medication Instructions Recorded Confirmed Last Taken Type Lidocaine Viscous 2% 10 ml MM QID PRN #60 udc 01/10/17 Unknown Rx Mag Hydrox/Aluminum Hyd/Simeth 10 ml PO QID PRN #60 oral.susp 01/10/17 Unknown Rx [Maalox Advanced Suspension] diphenhydrAMINE [Benadryl ORAL LIQ] 10 ml PO QID PRN #60 udc 01/10/17 Unknown Rx Fluconazole [Diflucan TAB] 200 mg PO ONCE #1 tablet 08/24/18 Unknown Rx Sulfamethoxazole/Trimethoprim 1 each PO BID 7 Days #14 tablet 08/24/18 Unknown Rx [Bactrim DS TAB] Nitrofurantoin [place]/M-Cryst 100 mg PO Q12HR #14 capsule 11/23/18 Unknown Rx [Macrobid CAP] Phenazopyridine [Pyridium] 100 mg PO TID #6 tab 11/23/18 Unknown Rx predniSONE [Prednisone] 50 mg PO DAILY #5 tablet 12/25/18 Unknown Rx Ibuprofen [Motrin 600 MG tab] 600 mg PO Q8H PRN #20 tablet 01/12/19 Unknown Rx Erythromycin [Erythromycin Ophth 10 applic OP QID 7 Days #1 tube 01/31/19 Unknown Rx Oint] metroNIDAZOLE [Metronidazole] 500 mg PO BID #14 tablet 02/19/19 Unknown Rx Ciprofloxacin HCl [Ciprofloxacin 250 mg PO BID 3 Days #6 tablet 03/26/19 Unknown Rx TAB] Fluconazole [Diflucan TAB] 150 mg PO ONCE #1 tablet 03/28/19 Unknown Rx ED Physical Exam - General Limitations: No Limitations General appearance: alert, in no apparent distress - Head Head exam: Present: atraumatic, normocephalic, normal inspection - Eye Eye exam: Present: normal appearance - ENT ENT exam: Present: normal exam, normal orophraynx, mucous membranes moist - Neck Neck exam: Present: normal inspection, full ROM. Absent: tenderness, meningismus, lymphadenopathy, thyromegaly - Respiratory Respiratory exam: Present: normal lung sounds bilaterally - Cardiovascular Cardiovascular Exam: Present: regular rate, normal rhythm, normal heart sounds - GI/Abdominal GI/Abdominal exam: Present: soft, normal bowel sounds. Absent: distended, tenderness, guarding, rebound, rigid, organomegaly, mass, bruit, pulsatile mass, hernia - Extremities Exam Extremities exam: Present: normal inspection, full ROM, normal capillary refill. Absent: tenderness, pedal edema, joint swelling, calf tenderness - Back Exam Back exam: Present: normal inspection, full ROM. Absent: CVA tenderness (R), CVA tenderness (L), muscle spasm, paraspinal tenderness, vertebral tenderness - Neurological Exam Neurological exam: Present: alert, oriented X3, CN II-XII intact, normal gait, reflexes normal - Psychiatric Psychiatric exam: Present: normal mood - Skin Skin exam: Present: warm, intact, normal color ED Course Vital Signs 08/13/19 08/14/19 08/14/19 21:34 02:38 03:07 Temperature 98.2 F 97.9 F 98.1 F Pulse Rate 76 53 L 55 L Respiratory 18 18 16 Rate Blood Pressure 114/76 Blood Pressure 113/71 107/74 [Right] O2 Sat by Pulse 98 98 100 Oximetry 08/14/19 08/14/19 08/14/19 04:50 06:32 07:26 Temperature Pulse Rate 52 L 65 71 Respiratory 16 17 18 Rate Blood Pressure Blood Pressure 98/52 99/68 99/68 [Right] O2 Sat by Pulse 98 98 98 Oximetry ED Medical Decision Making - Lab Data Result diagrams: 08/13/19 21:46 10/15/19 21:46 - Radiology Data Radiology results: report reviewed - Medical Decision Making Patient is 28 years old female with no significant past medical history. Patient presented to the ER complaining of lower abdominal pain mainly to the suprapubic area for the last 3 days. Patient denied any fever or chills. No vaginal bleeding or vaginal discharge. Patient also denied any nausea vomiting or diarrhea. Patient stated that she is feeling much better. Labs reviewed and is unremarkable. Ultrasound show a right ovarian cyst 1.9 cm. Patient advised to follow-up with echo tech in the next 2-3 days and to attend to the ER if symptoms are not improved. Critical care attestation.: If time is entered above; I have spent that time in minutes in the direct care of this critically ill patient, excluding procedure time. ED Disposition Clinical Impression: Abdominal pain, Ovarian cyst Disposition: DC- TO HOME OR SELFCARE Is pt being admited?: No Condition: Stable Instructions: Abdominal Pain (ED), Ovarian Cyst (ED) Referrals: [facility] [Provider Group] - 3-5 Days
[2019-08-14 06:33] VITALS: BP 99/68
--- NOTE | 2019-08-14 06:39 | Ultrasound Report ---
US pelvis duplex doppler comp INDICATION / CLINICAL INFORMATION: rlq abd pain. COMPARISON: None available. FINDINGS: The uterus measures 5 cm with a 1 cm endometrial stripe thickness. No uterine masses. The right ovary measures 4 cm x 3 cm. The left ovary measures 2.6 x 2.0 cm. A 1.9 cm right ovarian cyst is identified. There is minimal free fluid in the pelvis. Doppler imaging shows normal ovarian blood flow IMPRESSION: 1. Right ovarian cyst measuring 1.9 cm. 2. No evidence of ovarian torsion. Signer Name: Fernando Duncan MD Signed: 08/14/2019 6:35 AM Workstation Name: [id number]
== END 2019-08-14 09:14 | disposition home or self-care (01) ==
LOC: ED 20:37
DX: N83.201 Unspecified ovarian cyst, right side (principal)
CPT/HCPCS: 36415; 76830; 80053; 81001; 81025; 85025; 93975; 96374; 99284; J1885; J7030

== ENCOUNTER 2020-01-13 16:59 | Emergency (ER) | payer SELFPAY ==
[2020-01-13 17:04] VITALS: BP 104/66
--- NOTE | 2020-01-13 17:45 | Emergency Department Report ---
ED ENT HPI - General Chief complaint: Sore Throat Stated complaint: COLD SYM Time Seen by Provider: 01/13/20 17:39 Source: patient Mode of arrival: Ambulatory Limitations: No Limitations - History of Present Illness Initial comments: This is a 29-year-old female nontoxic well in appearance with no signs of distress presents to the ED with complaint of sore throat. Patient denies any drooling or hoarseness. Patient denies any other symptoms. Denies any fever, chills, headache, nausea, vomiting, chest pain or SOB. Denies any other complaints. Stated allergies to cefdinir but denies any allergies PCNJam WHARTON complaint: sore throat -: days(s) Location: throat Severity: mild Severity scale (0 -10): 8 Quality: aching Consistency: constant Improves with: none Worsens with: swallowing Associated Symptoms: pain with swallowing, sore throat. denies: fever, cough, gum swelling, toothache, tinnitus, hearing loss, discharge from ear, rhinorrhea - Related Data Previous Rx's Medication Instructions Recorded Last Taken Type Lidocaine Viscous 2% 10 ml MM QID PRN #60 udc 01/10/17 Unknown Rx Mag Hydrox/Aluminum Hyd/Simeth 10 ml PO QID PRN #60 oral.susp 01/10/17 Unknown Rx [Maalox Advanced Suspension] diphenhydrAMINE [Benadryl ORAL LIQ] 10 ml PO QID PRN #60 udc 01/10/17 Unknown Rx Fluconazole [Diflucan TAB] 200 mg PO ONCE #1 tablet 08/24/18 Unknown Rx Sulfamethoxazole/Trimethoprim 1 each PO BID 7 Days #14 tablet 08/24/18 Unknown Rx [Bactrim DS TAB] Nitrofurantoin Knott/M-Cryst 100 mg PO Q12HR #14 capsule 11/23/18 Unknown Rx [Macrobid CAP] Phenazopyridine [Pyridium] 100 mg PO TID #6 tab 11/23/18 Unknown Rx predniSONE [Prednisone] 50 mg PO DAILY #5 tablet 12/25/18 Unknown Rx Ibuprofen [Motrin 600 MG tab] 600 mg PO Q8H PRN #20 tablet 01/12/19 Unknown Rx Erythromycin [Erythromycin Ophth 10 applic OP QID 7 Days #1 tube 01/31/19 Unknown Rx Oint] metroNIDAZOLE [Metronidazole] 500 mg PO BID #14 tablet 02/19/19 Unknown Rx Ciprofloxacin HCl [Ciprofloxacin 250 mg PO BID 3 Days #6 tablet 03/26/19 Unknown Rx TAB] Fluconazole [Diflucan TAB] 150 mg PO ONCE #1 tablet 03/28/19 Unknown Rx Naproxen [Naprosyn] 500 mg PO BID #14 tablet 08/14/19 Unknown Rx Amoxicillin [Amoxicillin TAB] 875 mg PO BID #20 tablet 01/13/20 Unknown Rx Allergies Allergy/AdvReac Type Severity Reaction Status Date / Time cefdinir [From Omnicef] Allergy Anaphylaxis Verified 02/19/19 14:14 oxycodone [From Percocet] Allergy Anaphylaxis Verified 02/19/19 14:14 oxycodone HCl [From Percocet] AdvReac Hives Verified 02/19/19 14:14 ED Dental HPI - General Chief complaint: Sore Throat Stated complaint: COLD SYM Time Seen by Provider: 01/13/20 17:39 Source: patient Mode of arrival: Ambulatory Limitations: No Limitations - Related Data Previous Rx's Medication Instructions Recorded Last Taken Type Lidocaine Viscous 2% 10 ml MM QID PRN #60 udc 01/10/17 Unknown Rx Mag Hydrox/Aluminum Hyd/Simeth 10 ml PO QID PRN #60 oral.susp 01/10/17 Unknown Rx [Maalox Advanced Suspension] diphenhydrAMINE [Benadryl ORAL LIQ] 10 ml PO QID PRN #60 udc 01/10/17 Unknown Rx Fluconazole [Diflucan TAB] 200 mg PO ONCE #1 tablet 08/24/18 Unknown Rx Sulfamethoxazole/Trimethoprim 1 each PO BID 7 Days #14 tablet 08/24/18 Unknown Rx [Bactrim DS TAB] Nitrofurantoin Knott/M-Cryst 100 mg PO Q12HR #14 capsule 11/23/18 Unknown Rx [Macrobid CAP] Phenazopyridine [Pyridium] 100 mg PO TID #6 tab 11/23/18 Unknown Rx predniSONE [Prednisone] 50 mg PO DAILY #5 tablet 12/25/18 Unknown Rx Ibuprofen [Motrin 600 MG tab] 600 mg PO Q8H PRN #20 tablet 01/12/19 Unknown Rx Erythromycin [Erythromycin Ophth 10 applic OP QID 7 Days #1 tube 01/31/19 Unknown Rx Oint] metroNIDAZOLE [Metronidazole] 500 mg PO BID #14 tablet 04/23/19 Unknown Rx Ciprofloxacin HCl [Ciprofloxacin 250 mg PO BID 3 Days #6 tablet 03/26/19 Unknown Rx TAB] Fluconazole [Diflucan TAB] 150 mg PO ONCE #1 tablet 03/28/19 Unknown Rx Naproxen [Naprosyn] 500 mg PO BID #14 tablet 08/14/19 Unknown Rx Amoxicillin [Amoxicillin TAB] 875 mg PO BID #20 tablet 01/13/20 Unknown Rx Allergies Allergy/AdvReac Type Severity Reaction Status Date / Time cefdinir [From Omnicef] Allergy Anaphylaxis Verified 02/19/19 14:14 oxycodone [From Percocet] Allergy Anaphylaxis Verified 02/19/19 14:14 oxycodone HCl [From Percocet] AdvReac Hives Verified 02/19/19 14:14 ED Review of Systems ROS: Stated complaint: COLD SYM Other details as noted in HPI Constitutional: denies: chills, fever Eyes: denies: eye pain, eye discharge, vision change ENT: throat pain. denies: ear pain Respiratory: denies: cough, shortness of breath, wheezing Cardiovascular: denies: chest pain, palpitations Endocrine: no symptoms reported Gastrointestinal: denies: abdominal pain, nausea, diarrhea Genitourinary: denies: urgency, dysuria, discharge Musculoskeletal: denies: back pain, joint swelling, arthralgia Skin: denies: rash, lesions Neurological: denies: headache, weakness, paresthesias Psychiatric: denies: anxiety, depression Hematological/Lymphatic: denies: easy bleeding, easy bruising ED Past Medical Hx - Past Medical History Previous Medical History?: No - Surgical History Past Surgical History?: Yes Hx Appendectomy: Yes Additional Surgical History: x1 - Social History Smoking Status: Current Every Day Smoker Substance Use Type: None - Medications Home Medications: Home Medications Medication Instructions Recorded Confirmed Last Taken Type Lidocaine Viscous 2% 10 ml MM QID PRN #60 udc 01/10/17 Unknown Rx Mag Hydrox/Aluminum Hyd/Simeth 10 ml PO QID PRN #60 oral.susp 01/10/17 Unknown Rx [Maalox Advanced Suspension] diphenhydrAMINE [Benadryl ORAL LIQ] 10 ml PO QID PRN #60 udc 01/10/17 Unknown Rx Fluconazole [Diflucan TAB] 200 mg PO ONCE #1 tablet 08/24/18 Unknown Rx Sulfamethoxazole/Trimethoprim 1 each PO BID 7 Days #14 tablet 08/24/18 Unknown Rx [Bactrim DS TAB] Nitrofurantoin Knott/M-Cryst 100 mg PO Q12HR #14 capsule 11/23/18 Unknown Rx [Macrobid CAP] Phenazopyridine [Pyridium] 100 mg PO TID #6 tab 11/23/18 Unknown Rx predniSONE [Prednisone] 50 mg PO DAILY #5 tablet 12/25/18 Unknown Rx Ibuprofen [Motrin 600 MG tab] 600 mg PO Q8H PRN #20 tablet 01/12/19 Unknown Rx Erythromycin [Erythromycin Ophth 10 applic OP QID 7 Days #1 tube 01/31/19 Unknown Rx Oint] metroNIDAZOLE [Metronidazole] 500 mg PO BID #14 tablet 02/19/19 Unknown Rx Ciprofloxacin HCl [Ciprofloxacin 250 mg PO BID 3 Days #6 tablet 03/26/19 Unknown Rx TAB] Fluconazole [Diflucan TAB] 150 mg PO ONCE #1 tablet 03/28/19 Unknown Rx Naproxen [Naprosyn] 500 mg PO BID #14 tablet 08/14/19 Unknown Rx Amoxicillin [Amoxicillin TAB] 875 mg PO BID #20 tablet 01/13/20 Unknown Rx ED Physical Exam - General Limitations: No Limitations General appearance: alert, in no apparent distress - Head Head exam: Present: atraumatic, normocephalic - Expanded ENT Exam Expanded Mouth exam: Present: normal external inspection, tongue normal. Absent: drooling, trismus, muffled voice Teeth exam: Present: normal inspection Throat exam: Positive: tonsillar erythema. Negative: tonsillomegaly, tonsillar exudate, R peritonsillar mass, L peritonsillar mass - Neck Neck exam: Present: normal inspection, full ROM. Absent: tenderness, meningismus, lymphadenopathy - Respiratory Respiratory exam: Present: normal lung sounds bilaterally. Absent: respiratory distress, wheezes, rales, rhonchi, stridor, chest wall tenderness, accessory muscle use, decreased breath sounds, prolonged expiratory - Cardiovascular Cardiovascular Exam: Present: regular rate, normal rhythm, normal heart sounds. Absent: bradycardia, tachycardia, irregular rhythm, systolic murmur, diastolic murmur, rubs, gallop - Extremities Exam Extremities exam: Present: normal inspection, full ROM - Back Exam Back exam: Present: normal inspection, full ROM - Neurological Exam Neurological exam: Present: alert, oriented X3, normal gait - Psychiatric Psychiatric exam: Present: normal affect, normal mood - Skin Skin exam: Present: warm, dry, intact, normal color. Absent: rash ED Course Vital Signs 01/13/20 17:03 Temperature 98.0 F Pulse Rate 77 Respiratory 18 Rate Blood Pressure 104/66 O2 Sat by Pulse 98 Oximetry - Reevaluation(s) Reevaluation #1: 01/13/20 17:43 Patient is speaking in full sentences with no signs of distress noted. ED Medical Decision Making - Medical Decision Making Patient was instructed to Follow-up with a primary care doctor in 3-5 days or if symptoms worsen and continue return to emergency room as soon as possible. At time of discharge, the patient does not seem toxic or ill in appearance. No acute signs of distress noted. Patient agrees to discharge treatment plan of care. No further questions noted by the patient. Critical care attestation.: If time is entered above; I have spent that time in minutes in the direct care of this critically ill patient, excluding procedure time. ED Disposition Clinical Impression: Pharyngitis Qualifiers: Pharyngitis/tonsillitis etiology: unspecified etiology Qualified Code(s): J02.9 - Acute pharyngitis, unspecified Disposition: DC-01 TO HOME OR SELFCARE Is pt being admited?: No Does the pt Need Aspirin: No Condition: Stable Instructions: Pharyngitis (ED) Additional Instructions: Follow-up with a primary care doctor in 3-5 days or if symptoms worsen and continue return to emergency room as soon as possible. Prescriptions: Amoxicillin [Amoxicillin TAB] 875 mg PO BID #20 tablet Referrals: TABATHA GREY MD [Referring] - 3-5 Days DENNY ELIZABETH MD [Staff Physician] - 3-5 Days [facility] [Outside] - 3-5 Days Forms: Work/School Release Form(ED)
== END 2020-01-13 18:31 | disposition home or self-care (01) ==
LOC: ED 16:59
DX: J02.9 Acute pharyngitis, unspecified (principal); R13.10 Dysphagia, unspecified; F17.200 Nicotine dependence, unspecified, uncomplicated; Z98.890 Other specified postprocedural states; Z90.49 Acquired absence of other specified parts of digestive tract; Z79.1 Long term (current) use of non-steroidal anti-inflammatories (NSAID); Z79.2 Long term (current) use of antibiotics; Z79.899 Other long term (current) drug therapy; Z88.8 Allergy status to other drugs, medicaments and biological substances
CPT/HCPCS: 99282

== ENCOUNTER 2020-03-05 13:37 | Emergency (ER) | payer SELFPAY ==
--- NOTE | 2020-03-05 14:28 | Emergency Department Report ---
ED Abdominal Pain HPI - General Chief Complaint: Urogenital-Female Stated Complaint: STRONG URINE,HEADACHE,BACK PAIN Time Seen by Provider: 03/05/20 14:03 Source: patient Mode of arrival: Ambulatory Limitations: No Limitations - History of Present Illness Initial Comments: Patient is a 29-year-old female that comes to the emergency room complaining of suprapubic and right flank pain for 1 week. She also endorses a headache. Positive dysuria. She denies vaginal bleeding or discharge. She states that her urine smells unusually strong. She has been taking Pyridium and cranberry juice at home for the symptoms. Last menstrual cycle was 02/23/2020. Patient denies fever or chills. She denies any nausea vomiting or diarrhea. -: days(s) Severity: mild Consistency: intermittent Improves With: nothing Worsens With: nothing Associated Symptoms: denies other symptoms, dysuria. denies: nausea, vomiting, diarrhea, fever, chills, constipation, hematemesis, hematochezia, melena, hematuria, anorexia, syncope - Related Data Previous Rx's Medication Instructions Recorded Last Taken Type Fluconazole [Diflucan TAB] 200 mg PO ONCE #1 tablet 08/24/18 Unknown Rx Phenazopyridine [Pyridium] 200 mg PO BID PRN #12 tab 03/05/20 Unknown Rx Sulfamethoxazole/Trimethoprim 1 each PO BID 7 Days #14 tablet 03/05/20 Unknown Rx [Bactrim DS TAB] Allergies Allergy/AdvReac Type Severity Reaction Status Date / Time cefdinir [From Omnicef] Allergy Anaphylaxis Verified 02/19/19 14:14 oxycodone [From Percocet] Allergy Anaphylaxis Verified 02/19/19 14:14 oxycodone HCl [From Percocet] AdvReac Hives Verified 02/19/19 14:14 ED Review of Systems ROS: Stated complaint: STRONG URINE,HEADACHE,BACK PAIN Other details as noted in HPI Comment: All other systems reviewed and negative ED Past Medical Hx - Past Medical History Previous Medical History?: No - Surgical History Past Surgical History?: Yes Hx Appendectomy: Yes Additional Surgical History: x1 - Social History Smoking Status: Current Every Day Smoker Substance Use Type: None - Medications Home Medications: Home Medications Medication Instructions Recorded Confirmed Last Taken Type Fluconazole [Diflucan TAB] 200 mg PO ONCE #1 tablet 08/24/18 Unknown Rx Phenazopyridine [Pyridium] 200 mg PO BID PRN #12 tab 03/05/20 Unknown Rx Sulfamethoxazole/Trimethoprim 1 each PO BID 7 Days #14 tablet 03/05/20 Unknown Rx [Bactrim DS TAB] ED Physical Exam - General Limitations: No Limitations General appearance: alert, in no apparent distress - Head Head exam: Present: atraumatic, normocephalic - Eye Eye exam: Present: normal appearance - ENT ENT exam: Present: mucous membranes moist - Neck Neck exam: Present: normal inspection - Respiratory Respiratory exam: Present: normal lung sounds bilaterally. Absent: respiratory distress - Cardiovascular Cardiovascular Exam: Present: regular rate, normal rhythm. Absent: systolic murmur, diastolic murmur, rubs, gallop - GI/Abdominal GI/Abdominal exam: Present: soft, normal bowel sounds - Extremities Exam Extremities exam: Present: normal inspection - Back Exam Back exam: Present: normal inspection - Neurological Exam Neurological exam: Present: alert, oriented X3 - Psychiatric Psychiatric exam: Present: normal affect, normal mood - Skin Skin exam: Present: warm, dry, intact, normal color. Absent: rash ED Course Vital Signs 03/05/20 03/05/20 13:42 15:05 Temperature 98.1 F Pulse Rate 81 Respiratory 18 16 Rate Blood Pressure 112/68 O2 Sat by Pulse 100 Oximetry ED Medical Decision Making - Medical Decision Making Vital Signs 03/05/20 03/05/20 13:42 15:05 Temperature 98.1 F Pulse Rate 81 Respiratory 18 16 Rate Blood Pressure 112/68 O2 Sat by Pulse 100 Oximetry Lab Results 03/05/20 Range/Units 13:51 Urine Color Yellow (Yellow) Urine Turbidity Clear (Clear) Urine pH 6.0 (5.0-7.0) Ur Specific [place] 1.025 (1.003-1.030) Urine Protein <15 mg/dl (Negative) mg/dL Urine Glucose (UA) Neg (Negative) mg/dL Urine Ketones Neg (Negative) mg/dL Urine Blood Neg (Negative) Urine Nitrite Neg (Negative) Ur Reducing Substances Not Reportable Urine Bilirubin Neg (Negative) Urine Ictotest Not Reportable Urine Urobilinogen < 2.0 (<2.0) mg/dL Ur Leukocyte Esterase Neg (Negative) Urine WBC (Auto) 2.0 (0.0-6.0) /HPF Urine RBC (Auto) 1.0 (0.0-6.0) /HPF U Epithel Cells (Auto) 2.0 (0-13.0) /HPF Urine Bacteria (Auto) 2+ (Negative) /HPF Calcium Oxalate Crystal Few Urine Mucus Few /HPF Urine HCG, Qual Negative (Negative) Patient has been using Pyridium and drinking cranberry juice at home. Her UA is negative for leukocytes and nitrates. However, given her dysuria I am going to treat her for urinary tract infection. She has no flank pain. Her is negative. Vital signs are stable with no temperature. Patient states that she does have frequent UTIs and this is how they manifest. Patient discharged home with discharge plan of care - Differential Diagnosis Rule out , rule out UTI Critical care attestation.: If time is entered above; I have spent that time in minutes in the direct care of this critically ill patient, excluding procedure time. ED Disposition Clinical Impression: Dysuria Disposition: DC-01 TO HOME OR SELFCARE Is pt being admited?: No Does the pt Need Aspirin: No Condition: Stable Instructions: Urinary Tract Infection in Women (ED) Additional Instructions: hydrate well with water cranberry juice motrin or tylenol for pain med as ordered today follow up with pcp or obgyn if symptoms persist referral below Referrals: DENNY ELIZABETH MD [Staff Physician] - 3-5 Days LAURY RAMIREZ MD [Staff Physician] - 3-5 Days Time of Disposition: 15:09
[2020-03-05 14:53] LABS: HCG Qualitative,Urine Negative (Negative)
[2020-03-05] MEDS ORDERED: IBUPROFEN 800 MG TAB PO ONE (14:55)
[2020-03-05 14:56] LABS: Bacteria,Urine 2+ /HPF (Negative); Bilirubin,Urine NEG (Negative); Blood,Urine NEG (Negative); Calcium Oxalate Crystals,Urine FEW; Color,Urine Yellow (Yellow); Mucus,Urine FEW /HPF; Protein,Urine <15 mg/dL mg/dL (Negative); Urobilinogen,Urine < 2.0 mg/dL (<2.0)
[2020-03-05 15:24] VITALS: BP 103/67
== END 2020-03-05 15:29 | disposition home or self-care (01) ==
LOC: ED 13:37
DX: R30.0 Dysuria (principal); R10.2 Pelvic and perineal pain; R51 Headache; F17.200 Nicotine dependence, unspecified, uncomplicated; Z79.899 Other long term (current) drug therapy; Z98.890 Other specified postprocedural states; Z90.49 Acquired absence of other specified parts of digestive tract; Z88.8 Allergy status to other drugs, medicaments and biological substances
CPT/HCPCS: 81001; 81025; 99283